=== PATIENT | female | born 1980 | race Caucasian/White ===

== ENCOUNTER 2017-01-13 16:34 | Observation (INO) | payer OTHER ==
[2017-01-13] MEDS ORDERED: Ondansetron 4 MG/2 ML SDV IV ONE (16:47)
[2017-01-13] MEDS ORDERED: fentaNYL 100 MCG/2 ML SDV IVPUSH ONE ×2 (16:48→17:16)
[2017-01-13] MEDS ORDERED: Diphtheria,Pertussis(Acell),Tetanus Vaccine 0.5 ML SDV IM ONE (16:52)
--- NOTE | 2017-01-13 16:55 | EDM.PDOC ---
ED HPI GENERAL MEDICAL PROBLEM - General Chief Complaint: Lower Extremity Injury/Pain Stated Complaint: POSSIBLE BROKEN ANKLE Time Seen by Provider: 01/13/17 16:40 Source of Information: Reports: Patient, Family, RN, RN Notes Reviewed History Limitations: Reports: No Limitations - History of Present Illness INITIAL COMMENTS - FREE TEXT/NARRATIVE: Pt presents to the ER with c/o severe right ankle pain. She states she slipped and fell on the ice. She states she heard a loud "awful" noise. Patient rates the pain 10/10. She denies hitting her head or losing consciousness. Onset: Today, Sudden Location: Reports: Lower Extremity, Right Quality: Reports: Stabbing Severity: Severe Improves with: Reports: None Worsens with: Reports: Movement Associated Symptoms: Reports: No Other Symptoms Right Ankle Pain Score (Numeric/FACES): 10 - Related Data Allergies Allergy/AdvReac Type Severity Reaction Status Date / Time codeine Allergy Itching Verified 01/13/17 18:02 Home Meds: Home Meds . [No Known Home Meds] 01/13/17 [History] Review of Systems - Review of Systems Review Of Systems: ROS reveals no pertinent complaints other than HPI. ED EXAM, GENERAL - Physical Exam Exam: See Below Exam Limited By: No Limitations General Appearance: Alert, WD/WN, Anxious, Severe Distress Eye Exam: Bilateral Eye: EOMI, Normal Inspection Ears: Normal External Exam, Hearing Grossly Normal Nose: Normal Inspection Throat/Mouth: Normal Inspection, Normal Voice, No Airway Compromise Head: Atraumatic, Normocephalic Neck: Normal Inspection Respiratory/Chest: No Respiratory Distress, Lungs Clear, Normal Breath Sounds, No Accessory Muscle Use, Chest Non-Tender Cardiovascular: Normal Peripheral Pulses, Regular Rate, Rhythm, No Edema Peripheral Pulses: 1+: Dorsalis Pedis (R), 2+: Dorsalis Pedis (L) GI/Abdominal: Normal Bowel Sounds, Soft, Non-Tender (Female) Exam: Deferred Rectal (Female) Exam: Deferred Back Exam: Normal Inspection, Full Range of Motion Extremities: Other (open distal fibula fracture of the left ankle, severe pain, swelling, mild ecchymosis, capillary refill normal, pedal pulses palpable) Neurological: Alert, Oriented, Normal Cognition, No Motor/Sensory Deficits Psychiatric: Anxious, Tearful Skin Exam: Warm, Dry, Wound/Incision (puncture wound to the medial aspect of the ankle where the fractured bone exited and re-entered the skin. ) Lymphatic: No Adenopathy Course - Vital Signs Last Recorded V/S: Last Vital Signs Temp 98.9 F 01/13/17 16:40 Pulse 82 01/13/17 16:40 Resp 20 01/13/17 16:40 BP 140/95 H 01/13/17 16:40 Pulse Ox 100 01/13/17 16:40 - Orders/Labs/Meds Orders: Active Orders 24 hr Category Date Time Status Patient Status [ADT] Routine ADT 01/13/17 17:38 Active Antiembolic Devices [RC] PER UNIT ROUTINE Care 01/13/17 17:41 Active Bedrest Bathroom Privileges [RC] ASDIRECTED Care 01/13/17 17:38 Active Oxygen Therapy [RC] PRN Care 01/13/17 17:38 Active Peripheral IV Care [RC] . DIRECTED Care 01/13/17 17:41 Active VTE/DVT Education [RC] PER UNIT ROUTINE Care 01/13/17 17:38 Active Vaccines to be Administered [RC] PER UNIT ROUTINE Care 01/13/17 16:53 Active Vital Signs [RC] Q4H Care 01/13/17 17:38 Active Nothing per Oral Now Diet [DIET] Diet 01/13/17 Breakfast Active Lactated Ringers [Ringers, Lactated] 1,000 ml Med 01/13/17 17:45 Active IV ASDIRECTED Morphine Med 01/13/17 17:38 Active 2 mg IVPUSH Q2H PRN Ondansetron [Zofran] Med 01/13/17 17:38 Active 4 mg IVPUSH Q6H PRN Sodium Chloride 0.9% [Saline Flush] Med 01/13/17 17:38 Active 10 ml FLUSH ASDIRECTED PRN Zolpidem [Ambien] Med 01/13/17 17:38 Active 5 mg PO BEDTIME PRN Antiembolic Hose [OM.PC] Per Unit Routine Oth 01/13/17 17:39 Ordered Peripheral IV Insertion Adult [OM.PC] Routine Oth 01/13/17 17:38 Ordered Resuscitation Status Routine Resus Stat 01/13/17 17:38 Ordered Medication Orders Lactated Ringer's (Ringers, Lactated) 1,000 mls @ 125 mls/hr IV ASDIRECTED VICTORIA Morphine Sulfate (Morphine) 2 mg IVPUSH Q2H PRN PRN Reason: Pain (severe 7-10) Ondansetron HCl (Zofran) 4 mg IVPUSH Q6H PRN PRN Reason: Nausea/Vomiting Sodium Chloride (Saline Flush) 10 ml FLUSH ASDIRECTED PRN PRN Reason: Keep Vein Open Zolpidem Tartrate (Ambien) 5 mg PO BEDTIME PRN PRN Reason: Sleep Labs: Laboratory Tests 01/13/17 01/13/17 01/13/17 Range/Units 17:15 17:15 17:24 WBC 11.7 H (5.0-10.0) 10^3/uL RBC 4.69 (4.2-5.4) 10^6/uL Hgb 14.1 (12.0-16.0) g/dL Hct 42.3 (37.0-47.0) % MCV 90.2 (80-100) fL MCH 30.1 (27.0-34.0) pg MCHC 33.3 (33.0-35.0) g/dL Plt Count 238 (150-450) 10^3/uL Neut % (Auto) 66.3 (42.2-75.2) % Lymph % (Auto) 25.8 (20.5-50.1) % [place] % (Auto) 6.6 (2-8) % Eos % (Auto) 0.8 L (1.0-3.0) % Baso % (Auto) 0.5 (0.0-1.0) % Sodium 137 (135-145) mmol/L Potassium 3.8 (3.6-5.0) mmol/L Chloride 103 (101-111) mmol/L Carbon Dioxide 22.0 (21.0-31.0) mmol/L Anion Gap 15.8 BUN 12 (7-18) mg/dL Creatinine 0.7 (0.6-1.3) mg/dL Est Cr Clr Drug Dosing 112.08 mL/min Estimated GFR (MDRD) > 60 BUN/Creatinine Ratio 17.14 Glucose 105 (74-105) mg/dL Calcium 9.2 (8.4-10.2) mg/dl Total Bilirubin 0.3 (0.2-1.0) mg/dL AST 21 (10-42) IU/L ALT 15 (10-60) IU/L Alkaline Phosphatase 47 (42-121) IU/L Total Protein 7.4 (6.7-8.2) g/dl Albumin 4.3 (3.2-5.5) g/dl Globulin 3.1 Albumin/Globulin Ratio 1.39 Urine Color (YELLOW) Urine Appearance (CLEAR) Urine pH (5.0-9.0) Ur Specific [place] (1.005-1.030) Urine Protein (NEGATIVE) Urine Glucose (UA) (NEGATIVE) Urine Ketones (NEGATIVE) Urine Occult Blood (NEGATIVE) Urine Nitrite (NEGATIVE) Urine Bilirubin (NEGATIVE) Urine Urobilinogen (0.2-1.0) mg/dL Ur Leukocyte Esterase (NEGATIVE) Urine RBC /HPF Urine WBC (0-5/HPF) /HPF Ur Epithelial Cells /HPF Amorphous Sediment (0/HPF) /HPF Urine Bacteria (0-FEW/HPF) /HPF Urine Mucus /LPF Urine HCG, Qual Negative 01/13/17 Range/Units 17:24 WBC (5.0-10.0) 10^3/uL RBC (4.2-5.4) 10^6/uL Hgb (12.0-16.0) g/dL Hct (37.0-47.0) % MCV (80-100) fL MCH (27.0-34.0) pg MCHC (33.0-35.0) g/dL Plt Count (150-450) 10^3/uL Neut % (Auto) (42.2-75.2) % Lymph % (Auto) (20.5-50.1) % [place] % (Auto) (2-8) % Eos % (Auto) (1.0-3.0) % Baso % (Auto) (0.0-1.0) % Sodium (135-145) mmol/L Potassium (3.6-5.0) mmol/L Chloride (101-111) mmol/L Carbon Dioxide (21.0-31.0) mmol/L Anion Gap BUN (7-18) mg/dL Creatinine (0.6-1.3) mg/dL Est Cr Clr Drug Dosing mL/min Estimated GFR (MDRD) BUN/Creatinine Ratio Glucose (74-105) mg/dL Calcium (8.4-10.2) mg/dl Total Bilirubin (0.2-1.0) mg/dL AST (10-42) IU/L ALT (10-60) IU/L Alkaline Phosphatase (42-121) IU/L Total Protein (6.7-8.2) g/dl Albumin (3.2-5.5) g/dl Globulin Albumin/Globulin Ratio Urine Color Yellow (YELLOW) Urine Appearance Slightly cloudy (CLEAR) Urine pH 6.0 (5.0-9.0) Ur Specific [place] 1.020 (1.005-1.030) Urine Protein Negative (NEGATIVE) Urine Glucose (UA) Negative (NEGATIVE) Urine Ketones Negative (NEGATIVE) Urine Occult Blood Negative (NEGATIVE) Urine Nitrite Negative (NEGATIVE) Urine Bilirubin Negative (NEGATIVE) Urine Urobilinogen 0.2 (0.2-1.0) mg/dL Ur Leukocyte Esterase Negative (NEGATIVE) Urine RBC 0-5 /HPF Urine WBC 0-5 (0-5/HPF) /HPF Ur Epithelial Cells Few /HPF Amorphous Sediment Rare (0/HPF) /HPF Urine Bacteria Moderate H (0-FEW/HPF) /HPF Urine Mucus Rare /LPF Urine HCG, Qual Meds: Medications Generic Name Dose Route Start Last Admin Trade Name Freq PRN Reason Stop Dose Admin Lactated Ringer's 1,000 mls @ 125 mls/hr 01/13/17 17:45 Ringers, Lactated IV ASDIRECTED VICTORIA Morphine Sulfate 2 mg 01/13/17 17:38 Morphine IVPUSH Q2H PRN Pain (severe 7-10) Ondansetron HCl 4 mg 01/13/17 17:38 Zofran IVPUSH Q6H PRN Nausea/Vomiting Sodium Chloride 10 ml 01/13/17 17:38 Saline Flush FLUSH ASDIRECTED PRN Keep Vein Open Zolpidem Tartrate 5 mg 01/13/17 17:38 Ambien PO BEDTIME PRN Sleep Discontinued Medications Generic Name Dose Route Start Last Admin Trade Name Freq PRN Reason Stop Dose Admin Cefazolin Sodium 1 gm 01/13/17 17:09 01/13/17 17:14 Ancef IVPUSH 01/13/17 17:10 1 gm ONETIME ONE Administration Diphtheria/Tetanus/Acell Pertussis 0.5 ml 01/13/17 16:52 01/13/17 16:56 Adacel IM 01/13/17 16:53 0.5 ml .ONCE ONE Administration Fentanyl 25 mcg 01/13/17 16:48 01/13/17 16:55 Sublimaze IVPUSH 01/13/17 16:49 25 mcg ONETIME ONE Administration Fentanyl 25 mcg 01/13/17 17:16 01/13/17 17:27 Sublimaze IVPUSH 01/13/17 17:17 25 mcg ONETIME ONE Administration Ondansetron HCl 4 mg 01/13/17 16:47 01/13/17 16:55 Zofran IV 01/13/17 16:48 4 mg ONETIME ONE Administration - Radiology Interpretation Free Text/Narrative:: Right ankle x-ray: Bimalleolar soft tissue swelling and ankle joint effusion, spiral distal diaphyseal fracture of the right fibula and associated avulsion fracture fragment posterior malleolus distal right tibia. Assymmetry of the tibiotalar mortise joint consistent with severe ligamentous See rad report - Re-Assessments/Exams Free Text/Narrative Re-Assessment/Exam: 01/13/17 18:15 1710: Discussed patient case with Dr. Villar at [facility]. He states the patient needs to have the wound surgically cleansed within 24 hours of the injury. No travel advised at this time, ambulance cannot travel to [place]. Road open to [place], but EMS personnel state the roads are not good. Patient admitted to the medical floor for pain control per Dr. Wong until the patient can be transferred safely to ortho surgical services in [place] or [place]. Departure - Departure Time of Disposition: 18:18 Disposition: Refer to Observation Condition: Fair Clinical Impression: Open fracture of tibia and fibula Qualifiers: Encounter type: initial encounter Open fracture type: open type I or II Laterality: right Qualified Code(s): S82.201B - Unspecified fracture of shaft of right tibia, initial encounter for open fracture type I or II; S82.401B - Unspecified fracture of shaft of right fibula, initial encounter for open fracture type I or II; S82.401B - Unspecified fracture of shaft of right fibula , initial encounter for open fracture type I or II - Discharge Information - My Orders Last 24 Hours: My Active Orders 01/13/17 16:53 Vaccines to be Administered [RC] PER UNIT ROUTINE - Assessment/Plan Last 24 Hours: My Active Orders 01/13/17 16:53 Vaccines to be Administered [RC] PER UNIT ROUTINE
--- NOTE | 2017-01-13 17:02 | CR ---
Clinical history: 36-year-old female right ankle pain (injury). Interpretation: Abnormal. Bimalleolar soft tissue swelling and ankle joint effusion this patient with spiral distal diaphyseal fracture of the right fibula and associated avulsion fracture fragment posterior malleolus distal rig ht tibia. Note: Asymmetry of the tibiotalar mortise joint consistent with severe ligamentous injury but no othe r fractures identified. No foreign bodies. CONCLUSION: Acute bimalleolar fracture right ankle. Severe ligamentous injury.
[2017-01-13] MEDS ORDERED: ceFAZolin 1 GM Vial IVPUSH ONE (17:09)
[2017-01-13] MEDS ORDERED: Sodium Chloride 0.9% 10 ML Syringe FLUSH PRN (17:38)
[2017-01-13] MEDS ORDERED: Zolpidem 5 MG Tab PO PRN (17:38)
[2017-01-13 17:41] LABS: CHLORIDE,CL 103 mmol/L (101-111); SODIUM,NA 137 mmol/L (135-145)
--- NOTE | 2017-01-13 18:15 | PCM.HP ---
H&P History of Present Illness - General Date of Service: 01/13/17 Admit Problem/Dx: Admission Diagnosis/Problem Admission Diagnosis/Problem Ankle fracture Source of Information: Patient - History of Present Illness Initial Comments - Free Text/Narative: The patient is a 36-year-old healthy lady. She has allergy to codeine causing nausea. She is not taking any regular medications She fell on the ice and came to the emergency room with complains of right ankle area pain. She was noted to have an open fracture. Immobilizer was applied, orthopedic surgery in [place] was contacted. They are recommending the surgery preferably within 24 hours. Unfortunately due to overload conditions no transfer is possible currently The patient received cefazolin and TD shots in the emergency room. She is rating the right ankle area pain is moderate to severe versus with movements of the leg. Since the fall. Better with IV pain medication. She received fentanyl in the ER. She did not hit the head, no loss of consciousness. Right Ankle Pain Score (Numeric/FACES): 10 - Related Data Allergies/Adverse Reactions: Allergies Allergy/AdvReac Type Severity Reaction Status Date / Time codeine Allergy Itching Verified 01/13/17 18:02 Home Medications: Home Meds . [No Known Home Meds] 01/13/17 [History] Past Medical History HEENT History: Reports: Impaired Vision - Past Surgical History Female Surgical History: Reports: Section Social & Family History - Family History Family Medical History: Noncontributory - Tobacco Use Smoking Status *Q: Current Every Day Smoker Years of Tobacco use: 12 Packs/Tins Daily: 0.5 - Caffeine Use Caffeine Use: Reports: Coffee, Soda - Recreational Drug Use Recreational Drug Use: No H&P Review of Systems - Review of Systems: Review Of Systems: See Below General: Reports: Chills. Denies: Fever Cardiovascular: Denies: Chest Pain Gastrointestinal: Denies: Abdominal Pain Neurological: Denies: Confusion Exam - Exam Exam: See Below - Vital Signs Vital Signs: Last Vital Signs Temp 36.8 C 01/13/17 18:08 Pulse 54 L 01/13/17 18:08 Resp 18 01/13/17 18:08 BP 114/67 01/13/17 18:08 Pulse Ox 100 01/13/17 18:08 Weight: 90.718 kg - Exam General: Alert, Oriented Neck: Supple Lungs: Clear to Auscultation Cardiovascular: Regular Rate, Regular Rhythm GI/Abdominal Exam: Normal Bowel Sounds, Soft Extremities: Leg Pain, Other (Right lower extremity in immobilizer) - Patient Data Result Diagrams: 01/13/17 17:15 01/13/17 17:15 *Q Meaningful Use (ADM) - VTE *Q VTE Criteria *Q: - Stroke *Q Stroke Criteria *Q: - AMI *Q AMI Criteria *Q: Problem List Initiated/Reviewed/Updated: Yes Orders Last 24hrs: Active Orders 24 hr Category Date Time Status ceFAZolin [Ancef] Med 01/13/17 23:00 Ordered 1 gm IVPUSH Q8H Medication Orders Cefazolin Sodium (Ancef) 1 gm IVPUSH Q8H VICTORIA Lactated Ringer's (Ringers, Lactated) 1,000 mls @ 125 mls/hr IV ASDIRECTED VICTORIA Morphine Sulfate (Morphine) 2 mg IVPUSH Q2H PRN PRN Reason: Pain (severe 7-10) Ondansetron HCl (Zofran) 4 mg IVPUSH Q6H PRN PRN Reason: Nausea/Vomiting Sodium Chloride (Saline Flush) 10 ml FLUSH ASDIRECTED PRN PRN Reason: Keep Vein Open Zolpidem Tartrate (Ambien) 5 mg PO BEDTIME PRN PRN Reason: Sleep Assessment/Plan Comment:: Right ankle fracture, open fracture The patient received tetanus shot, cefazolin Orthopedic surgery at [facility] has been contacted We will transfer to [facility] when Road conditions allow. Pain management will be with IV morphine Continue cefazolin for open fracture. We will keep nothing by mouth for possible emergent surgery Will hydrate with IV fluids.
[2017-01-13] MEDS: Lactated Ringers 1,000 ML IV SCH (18:41)
[2017-01-13] MEDS: Morphine 2 MG/ML Syringe IVPUSH PRN ×3 (19:15→23:23)
[2017-01-13] MEDS: ceFAZolin 1 GM Vial IVPUSH SCH (22:54)
[2017-01-13] MEDS: HYDROmorphone 1 MG/ML Syringe IVPUSH PRN (23:32)
[2017-01-14] MEDS: HYDROmorphone 1 MG/ML Syringe IVPUSH PRN ×6 (00:44→10:20)
[2017-01-14] MEDS: Lactated Ringers 1,000 ML IV SCH ×2 (02:50→09:57)
[2017-01-14] MEDS: Ondansetron 4 MG/2 ML SDV IVPUSH PRN ×3 (02:52→10:07)
[2017-01-14] MEDS ORDERED: diphenhydrAMINE 12.5 MG/5 ML Liquid 5 ML UD Cup PO PRN (04:23)
[2017-01-14] MEDS: ceFAZolin 1 GM Vial IVPUSH SCH (06:36)
--- NOTE | 2017-01-14 09:33 | PCM.DCSUM1 ---
Discharge Summary - Hospital Course Free Text/Narrative:: Right ankle fracture, open fracture The patient received tetanus shot, cefazolin Orthopedic surgery at [facility] has been contacted. Transfer was delayed due to Road conditions. We will transfer to [facility] . Pain management was with IV dilaudid Continue cefazolin for open fracture. We will keep nothing by mouth for possible emergent surgery was hydrated with IV fluids. - Discharge Data Discharge Date: 01/14/17 Discharge Disposition: DC/Tfer to Acute Hospital 02 Condition: Good - Patient Instructions Diet: NPO Activity: Bedrest - Discharge Plan Home Medications: Home Meds HYDROmorphone [Dilaudid] 0.5 mg IVPUSH Q1H PRN syringe 01/14/17 [Rx] Ondansetron [Zofran] 4 mg IVPUSH Q6H PRN vial 01/14/17 [Rx] ceFAZolin [Ancef] 1 gm IVPUSH Q8H vial 01/14/17 [Rx] diphenhydrAMINE [Benadryl] 25 mg PO QID PRN cup 01/14/17 [Rx] - General Info Date of Service: 01/14/17 - Review of Systems General: Reports: Chills. Denies: Fever Pulmonary: Denies: Shortness of Breath Cardiovascular: Denies: Chest Pain Musculoskeletal: Reports: Leg Pain - Patient Data Vitals - Most Recent: Last Vital Signs Temp 36.9 C 01/14/17 07:45 Pulse 78 01/14/17 07:45 Resp 20 01/14/17 07:45 BP 121/60 01/14/17 07:45 Pulse Ox 98 01/14/17 07:45 Weight - Most Recent: 90.718 kg I&O - Last 24 hours: Intake & Output 01/13/17 01/14/17 01/14/17 22:59 06:59 14:59 Intake Total 1000 Output Total 1200 Balance -200 Med Orders - Current: Current Medications Cefazolin Sodium (Ancef) 1 gm IVPUSH Q8H VICTORIA Last Admin: 01/14/17 06:36 Dose: 1 gm Diphenhydramine HCl (Benadryl) 25 mg PO QID PRN PRN Reason: shivering, Last Admin: 01/14/17 05:38 Dose: 25 mg Hydromorphone HCl (Dilaudid) 0.5 mg IVPUSH Q1H PRN PRN Reason: Pain Last Admin: 01/14/17 08:56 Dose: 0.5 mg Lactated Ringer's (Ringers, Lactated) 1,000 mls @ 125 mls/hr IV ASDIRECTED VICTORIA Last Admin: 01/14/17 02:50 Dose: 125 mls/hr Ondansetron HCl (Zofran) 4 mg IVPUSH Q6H PRN PRN Reason: Nausea/Vomiting Last Admin: 01/14/17 04:10 Dose: 4 mg Sodium Chloride (Saline Flush) 10 ml FLUSH ASDIRECTED PRN PRN Reason: Keep Vein Open Zolpidem Tartrate (Ambien) 5 mg PO BEDTIME PRN PRN Reason: Sleep Last Admin: 01/13/17 21:28 Dose: 5 mg Discontinued Medications Cefazolin Sodium (Ancef) 1 gm IVPUSH ONETIME ONE Stop: 01/13/17 17:10 Last Admin: 01/13/17 17:14 Dose: 1 gm Diphtheria/Tetanus/Acell Pertussis (Adacel) 0.5 ml IM .ONCE ONE Stop: 01/13/17 16:53 Last Admin: 01/13/17 16:56 Dose: 0.5 ml Fentanyl (Sublimaze) 25 mcg IVPUSH ONETIME ONE Stop: 01/13/17 16:49 Last Admin: 01/13/17 16:55 Dose: 25 mcg Fentanyl (Sublimaze) 25 mcg IVPUSH ONETIME ONE Stop: 01/13/17 17:17 Last Admin: 01/13/17 17:27 Dose: 25 mcg Morphine Sulfate (Morphine) 2 mg IVPUSH Q2H PRN PRN Reason: Pain (severe 7-10) Last Admin: 01/13/17 23:23 Dose: 2 mg Ondansetron HCl (Zofran) 4 mg IV ONETIME ONE Stop: 01/13/17 16:48 Last Admin: 01/13/17 16:55 Dose: 4 mg - Exam General: Reports: Alert, Oriented Neck: Reports: Supple Lungs: Reports: Clear to Auscultation, Normal Respiratory Effort GI/Abdominal Exam: Normal Bowel Sounds, Soft, Non-Tender Skin: Reports: Warm Neurological: Reports: No New Focal Deficit Psy/Mental Status: Reports: Alert, Normal Affect, Normal Mood *Q Meaningful Use (DIS) - VTE *Q VTE Criteria *Q: - Stroke *Q Stroke Criteria *Q: - AMI *Q AMI Criteria *Q:
== END 2017-01-14 10:20 ==
LOC: DL.ED 16:34 → DL.MS 17:38 → DL.ED 17:44 → DL.MS 18:03 → UNDOADMOB 18:03
PROVIDERS: ADMIT Internal Medicine; ATTEND Internal Medicine
DX: S82.841B Displaced bimalleolar fracture of right lower leg, initial encounter for open fracture type I or II (principal); Z88.8 Allergy status to other drugs, medicaments and biological substances; Z79.899 Other long term (current) drug therapy; W01.0XXA Fall on same level from slipping, tripping and stumbling without subsequent striking against object, initial encounter; Y93.29 Activity, other involving ice and snow
CPT/HCPCS: 36415; 51702; 73610; 80053; 81001; 81025; 85025; 90471; 90715; 96361; 96374; 96375; 96376; 99285; A9270; G0378; J0690; J1170; J2270; J2405; J3010; J7050; J7120; 51701

== ENCOUNTER 2017-04-03 08:24 | Emergency (ER) | payer OTHER ==
[2017-04-03] MEDS ORDERED: Bacitracin Oint 1 GM U/D Packet TOP ONE (09:54)
[2017-04-03] MEDS ORDERED: Lidocaine 1% 30 ML SDV INJECT ONE (09:54)
--- NOTE | 2017-04-03 10:18 | EDM.PDOC ---
ED HPI GENERAL MEDICAL PROBLEM - General Chief Complaint: Laceration Stated Complaint: LACERATION OF FINGER [phone] Time Seen by Provider: 04/03/17 09:55 Source of Information: Reports: Patient History Limitations: Reports: No Limitations - History of Present Illness INITIAL COMMENTS - FREE TEXT/NARRATIVE: This patient reports she was working today when she cut her hand on a lamp. The patient reports no specific problems, but was not able to keep the wound margins together on her own. Bleeding was controlled prior to coming to the Ed. Onset: Today Onset Date: 04/03/17 Onset Time: 07:30 Location: Reports: Upper Extremity, Right Quality: Reports: Ache, Dull Severity: Mild Improves with: Reports: None Worsens with: Reports: None Context: Reports: Other Associated Symptoms: Reports: No Other Symptoms Right Hand Pain Score (Numeric/FACES): 1 - Related Data Allergies Allergy/AdvReac Type Severity Reaction Status Date / Time codeine Allergy Itching Verified 04/03/17 08:35 Home Meds: Home Meds diphenhydrAMINE [Benadryl] 25 mg PO QID PRN cup 01/14/17 [Rx] Ibuprofen 400 mg PO ASDIRECTED PRN 04/03/17 [History] Past Medical History HEENT History: Reports: Impaired Vision Other HEENT History: wears glasses Cardiovascular History: Reports: None Respiratory History: Reports: None Gastrointestinal History: Reports: None Genitourinary History: Reports: None [employer] History: Reports: None Neurological History: Reports: None Psychiatric History: Reports: None Endocrine/Metabolic History: Reports: None Hematologic History: Reports: None Immunologic History: Reports: None Oncologic (Cancer) History: Reports: None Dermatologic History: Reports: None - Infectious Disease History Infectious Disease History: Reports: Chicken Pox - Past Surgical History Head Surgeries/Procedures: Reports: None Female Surgical History: Reports: Section Other Musculoskeletal Surgeries/Procedures:: broken leg and ankle january 2017 Social & Family History - Family History Family Medical History: Noncontributory - Tobacco Use Smoking Status *Q: Current Every Day Smoker Years of Tobacco use: 13 Packs/Tins Daily: 0.5 Second Hand Smoke Exposure: No - Caffeine Use Caffeine Use: Reports: Coffee - Recreational Drug Use Recreational Drug Use: No ED ROS GENERAL - Review of Systems Review Of Systems: ROS reveals no pertinent complaints other than HPI. ED EXAM, SKIN/RASH Exam: See Below Exam Limited By: No Limitations General Appearance: Alert, WD/WN, No Apparent Distress Eye Exam: Bilateral Eye: EOMI, Normal Inspection Ears: Normal External Exam Nose: Normal Inspection Throat/Mouth: Normal Inspection, Normal Lips, Normal Teeth Head: Atraumatic, Normocephalic Respiratory/Chest: No Respiratory Distress Cardiovascular: Normal Peripheral Pulses, Regular Rate, Rhythm (Female) Exam: Deferred Rectal (Female) Exam: Deferred Extremities: Other (laceration to right 3rd finger between MCP and PIP joint. No tendon involvement and no joint involvement) Neurological: Alert, Oriented, Normal Cognition, Normal Gait Psychiatric: Normal Affect, Normal Mood Skin: Warm, Dry, Normal Color, No Rash, Wound/Incision Location, Skin: Upper Extremity, Right Characteristics: Linear Associated features: No: Warmth, Tenderness, Swelling Lymphatic: No Adenopathy ED SKIN PROCEDURES - Laceration/Wound Repair Right Middle Finger Lac/Wound length In cm: 3.0 Appearance: Subcutaneous Distal NVT: Neuro & Vascular Intact Anesthetic Type: Local Local Anesthesia - Lidocaine (Xylocaine): 1% Plain Local Anesthetic Volume: 3cc Skin Prep: Chlorhexidine (Hibiciens), Saline Exploration/Debridement/Repair: Wound Explored, In a Bloodless Field, No Foreign Material Found Closed with: Sutures Suture Size: 4-0 # of Sutures: 7 Suture Type: Prolene, Interrupted, Simple Drain Placement: No Sterile Dressing Applied: Nurse Tetanus Status Addressed: Yes Complications: No Course - Vital Signs Last Recorded V/S: Last Vital Signs Temp 36.6 C 04/03/17 08:32 Pulse 90 04/03/17 08:32 Resp 16 04/03/17 08:32 BP 117/70 04/03/17 08:32 Pulse Ox 99 04/03/17 08:32 - Orders/Labs/Meds Meds: Medications Discontinued Medications Generic Name Dose Route Start Last Admin Trade Name Tobias PRN Reason Stop Dose Admin Bacitracin 1 dose 04/03/17 09:54 04/03/17 09:57 Bacitracin Oint 1 Gm TOP 04/03/17 09:55 1 dose ONETIME ONE Administration Lidocaine HCl 30 ml 04/03/17 09:54 04/03/17 09:57 Xylocaine-Mpf 1% INJECT 04/03/17 09:55 30 ml ONETIME ONE Administration Departure - Departure Time of Disposition: 10:15 Disposition: Home, Self-Care 01 Condition: Fair Clinical Impression: Laceration of right middle finger Qualifiers: Encounter type: initial encounter Damage to nail status: without damage Foreign body presence: without foreign body Qualified Code(s): S61.212A - Laceration without foreign body of right middle finger without damage to nail, initial encounter - Discharge Information Instructions: Laceration Care, Adult, [id number], Stitches, [place], or Adhesive Wound Closure, [id number] Forms: ED Department Discharge Care Plan Goals: The patient was advised of the examination results during the visit. The wound margins were well approximated during the visit. The patient should keep the area clean and dry over the next 24 hours. The sutures should be removed in 10- 14 days. If the patient has any additional symptoms or concerns, the patient should follow-up with her primary care facility or return to the emergency department.
== END 2017-04-03 10:23 | disposition home or self-care (01) ==
LOC: DL.ED 08:24
DX: S61.212A Laceration without foreign body of right middle finger without damage to nail, initial encounter (principal); F17.210 Nicotine dependence, cigarettes, uncomplicated; Z88.5 Allergy status to narcotic agent; W25.XXXA Contact with sharp glass, initial encounter
CPT/HCPCS: 12002; 12013; 99282; 99283

== ENCOUNTER 2022-10-11 11:22 | Emergency (ER) | payer OTHER | END 2022-10-11 12:15 | disposition home or self-care (01) | LOC: DL.ED 11:22 | DX: G51.0 Bell's palsy (principal); Z88.1 Allergy status to other antibiotic agents; Z91.018 Allergy to other foods; Z79.899 Other long term (current) drug therapy | CPT/HCPCS: 70450; 99284 ==